=== PATIENT | male | born 1985 | race Asian ===

== ENCOUNTER 2025-03-27 16:17 | Emergency (ER) | payer BC, OTHER, SELFPAY ==
[2025-03-27 16:39] VITALS: BP 142/95; PULSE 94; RESP 18; TEMP 36.6; O2SAT 97; BMI 40.4
--- NOTE | 2025-03-27 16:51 | EDRME_ITS ---
<Statement entered by Hedy Anne MD - 03/27/25 16:54> As co-signing physician, I was present and available for consult prn. I concur with the plan and care as documented by the midlevel provider. Rapid Medical Screening Exam RME Arrival date/time: 03/27/25 16:17 39-year-old male with no known medical history presents to the emergency room with a chief complaint of tenderness to his left calf. Patient states he was running yesterday and felt a pulling sensation and today he is having difficulty walking. I have greeted and performed a focused initial assessment of this patient. A comprehensive ED assessment and evaluation of the patient, analysis of all test results, and completion of the medical decision making process will be conducted by additional ED providers. Chief Complaint: Extremity Injury, Lower Time Seen by Provider: 03/27/25 16:37 Vital signs: Vital Signs Temperature 97.9 F 03/27/25 16:39 Pulse Rate 94 03/27/25 16:39 Respiratory Rate 18 03/27/25 16:39 Blood Pressure 142/95 H 03/27/25 16:39 Pulse Oximetry (%) 97 03/27/25 16:39 Oxygen Delivery Method Room Air 03/27/25 16:39 Vital signs reviewed by provider: Yes Exam: Tenderness swelling and pain to the patient's left calf Patient has clear bilateral lung sounds no respiratory distress no chest pain Clinical Impression: Calf sprain/calf tear
--- NOTE | 2025-03-27 18:21 | XR_ITS ---
EXAMINATION: Ultrasound soft tissue extremity left calf INDICATIONS: Injury to the lower leg with calf pain today Date and time: March 27, 2025, 1826 hours FINDINGS: : Hypoechoic area consistent with hemorrhage 4.6 x 1.9 x 2.5 cm in the left calf IMPRESSION: Hematoma in the soft tissue left calf MRI lower leg without contrast follow-up would best assess for rupture of the plantaris tendon or tear and hemorrhage in the medial head of the gastrocnemius
[2025-03-27] MEDS: HYDROcodone/APAP 5/325 TABLET 1 TAB PO (20:54)
[2025-03-27] MEDS: DEXAMETHASONE SOD PHOS INJ 10 MG/ML VIAL PO (20:54)
[2025-03-27 20:55] LABS: Basophils # (Auto) 0.1 Thou/mm3 (0.0-0.2); Basophils % (Auto) 1 % (0-2.5); Eosinophils # (Auto) 0.3 Thou/mm3 (0.0-0.5); Eosinophils % (Auto) 3 % (0-10); Hematocrit 47.1 % (41.0-53.0); Hemoglobin 15.8 g/dL (13.5-16.0); Immature Granulocytes Auto 0.06 Thou/mm3 (0.00-0.00); Lymphocytes # (Auto) 2.4 Thou/mm3 (1.0-4.8); Lymphocytes % (Auto) 25 % (10-50); Mean Corpuscular HGB Conc 33.5 g/dl (31.0-37.0); Mean Corpuscular Hemoglobin 30.9 pg (25.0-35.0); Mean Corpuscular Volume 92 fL (80-100); Monocytes # (Auto) 0.7 Thou/mm3 (0.0-0.8); Monocytes % (Auto) 7 % (0-12); Neutrophils # (Auto) 5.9 Thou/mm3 (1.8-7.7); Neutrophils % (Auto) 63 % (37-80); Nucleated Red Blood Cell # 0.00 Thou/mm3 (0.00-0.00); Nucleated Red Blood Cell % 0 /100 WBC (0); Platelet Count 217 Thou/mm3 (140-440); RDW Standard Deviation 39.2 fL (35.1-43.9); Red Blood Count 5.12 Miln/mm3 (4.50-5.90); White Blood Count 9.4 Thou/mm3 (3.8-10.6)
[2025-03-27 21:12] LABS: Alanine Aminotransferase 25 U/L (10-49); Albumin, Serum 4.6 gm/dL (3.5-5.0); Albumin/Globulin Ratio 2.1 (1.2-2.2); Alkaline Phosphatase 83 U/L (46-116); Anion Gap 11 (7-16); Aspartate Amino Transferase 17 U/L (0-34); BUN/Creatinine Ratio 13 Ratio (12-20); Bilirubin,Total 0.2 mg/dL (0.3-1.2); Blood Urea Nitrogen 15 mg/dL (9-23); Calcium 9.5 mg/dL (8.3-10.6); Calcium (Corrected) 9.5 mg/dL (8.5-10.1); Carbon Dioxide 25.1 mMol/L (20.0-31.0); Chloride 101 mMol/L (98-107); Creatine Kinase 195 U/L (34-171); Creatinine (Component) 1.2 mg/dL (0.6-1.3); Estimated Creatinine Clearance 106.4 mL/min (>60); Globulin 2.2 gm/dL (2.3-3.5); Glucose 273 mg/dL (74-106); Osmolality,Calculated 284 (275-295); Potassium 4.1 mMol/L (3.4-5.1); Sodium 137 mMol/L (136-145); Total Protein 6.8 gm/dL (5.7-8.2); eGFR > 60 See Note
--- NOTE | 2025-07-04 14:59 | PD.EDLOWEX ---
Lower Extremity Injury RME/HPI General Chief Complaint: Extremity Injury, Lower Stated Complaint: LEFT LOWER LEG PAIN Time Seen by Provider: 03/27/25 16:37 Arrival date/time: 03/27/25 16:17 This is a case of 40-year-old male with no medical history came in in the emergency room due to left lower leg pain after running since last night patient denies any swelling but due to pain has decided to sought consult here in the emergency room Limitations: no limitations RME / HPI RME / HPI Narrative: 03/27/25 16:17 39-year-old male with no known medical history presents to the emergency room with a chief complaint of tenderness to his left calf. Patient states he was running yesterday and felt a pulling sensation and today he is having difficulty walking. I have greeted and performed a focused initial assessment of this patient. A comprehensive ED assessment and evaluation of the patient, analysis of all test results, and completion of the medical decision making process will be conducted by additional ED providers. Exam: Tenderness swelling and pain to the patient's left calf Patient has clear bilateral lung sounds no respiratory distress no chest pain Impression: Calf sprain/calf tear Related Data Previous Rx's ?Medication ?Instructions ?Recorded hydrocodone 5 mg-acetaminophen 325 1 tab PO Q6H PRN pain #12 tabs 03/27/25 mg tablet Allergies Allergy/AdvReac Type Severity Reaction Status Date / Time No Known Allergies Allergy Mild Uncoded 01/22/08 22:31 Review of Systems Review of Systems Systems Reviewed: All systems reviewed, normal except as documented Past Medical History Social History SMOKING STATUS: Current some day smoker ED Exam General Limitations: Present no limitations General appearance: Present alert, in no apparent distress and other (Patient is awake alert oriented not in distress nontoxic looking well-hydrated well-nourished) Head Head exam: Present atraumatic, normocephalic and normal inspection Eye Eye exam: Present normal appearance, PERRL and EOMI ENT ENT exam: Present normal exam, normal oropharynx and mucous membranes moist Neck Neck exam: Present normal inspection, full ROM and trachea midline Chest Chest inspection: Present normal inspection and symmetric chest wall rise Respiratory Respiratory exam: Present normal lung sounds bilaterally; Absent respiratory distress, wheezes, stridor, accessory muscle use or prolonged expiratory phase Cardiovascular Cardiovascular exam: Present regular rate, normal rhythm and normal heart sounds; Absent bradycardia, tachycardia, irregular rhythm, systolic murmur or diastolic murmur Abdominal Exam Abdominal exam: Present soft and normal bowel sounds Extremities Exam Extremities exam: Present normal inspection and full ROM Expanded Lower Extremity Exam Hip/Pelvis exam: Present normal inspection and full ROM; Absent tenderness or swelling Upper leg exam: Present normal inspection and full ROM; Absent tenderness or swelling Knee exam: Present normal inspection and full ROM; Absent tenderness or swelling Lower leg exam: Present tenderness, swelling, Achilles tendon intact and other (Mild to moderate tenderness on the left lower leg but no crepitation no deformed negative Ellis's sign ROM is limited due to pain pulses were full and equal capillary refill less than 2 seconds sensory intact no claudication); Absent abrasion, laceration, ecchymosis, deformity, crepitus, dislocation, erythema, palpable cord or Homans' sign Ankle exam: Present normal inspection and full ROM; Absent tenderness or swelling Foot/toe exam: Present normal inspection and full ROM; Absent tenderness or swelling Back Exam Back exam: Present normal inspection and full ROM Neurological Exam Neurological exam: Present alert, oriented X3, CN II-XII intact, reflexes normal and other (Unable to assess her gait due to pain on the left lowerleg); Absent motor sensory deficit Psychiatric Psychiatric exam: Present normal affect and normal mood Skin Skin exam: Present warm, dry, intact and normal color Course Quality Measures none Orders Category Date Time Status US extremity nonvascular LMTD Stat Exams 03/27/25 18:21 Completed CBC Stat Lab 03/27/25 20:35 Completed CMP [Comprehensive Metabolic Panel] Stat Lab 03/27/25 20:35 Completed Creatine Kinase Stat Lab 03/27/25 20:35 Completed HYDROcodone*/APAP 5/325 [Elmer 5/325] Med 03/27/25 20:16 Discontinued 1 tab PO X1 ONE dexAMETHasone INJ [Decadron Inj] Med 03/27/25 20:16 Discontinued 10 mg PO X1 ONE Vital Signs Vital signs: Vital Signs Temperature 97.9 F 03/27/25 16:39 Pulse Rate 94 03/27/25 16:39 Respiratory Rate 18 03/27/25 16:39 Blood Pressure 142/95 H 03/27/25 16:39 Pulse Oximetry (%) 97 03/27/25 16:39 Oxygen Delivery Method Room Air 03/27/25 16:39 Oxygen saturation is 97% in room air Extremity Injury, Lower MDM Narrative MDM Narrative:: Patient was discharged with comfortable condition walking with stable gait. Patient verbalized no further complains explained diagnosis and answered patient question. Patient is comfortable with the proposed management plan including the need to follow up with his/her primary care physician and any specialist if applicable Discussed patient for any urgent condition or worsening sx, He/She needed to go to emergency room immediately or call 911. Patient acknowledge the responsibility to follow up as instructed and to monitor her/his symptoms. For any persistence of the symptoms for more than 3-5 days return precaution advised. Discussed the result of the test and was given printed discharge instruction Patient data External records reviewed:: [facility] previous records Clinical information provided by:: none Social determinants that could affect healthcare access:: none Patient has the following chronic illnesses:: None How is presenting disease/condition affected by chronic disease/condition?: no chronic disease Evaluation data The following diagnostics were reviewed and interpreted by me:: lab results and radiology exam(s) Lab and/or radiology exams considered but not ordered:: Reviewed Interpretation Summary: Good reviewed Medications / Prescriptions Medications or Prescriptions considered but not ordered:: Given Medication administrations:: Medication Administration History Discontinued Medications Hydrocodone Bitart/Acetaminophen (Hydrocodone/Apap 5/325 Tablet) 1 tab PO X1 ONE Stop: 03/27/25 20:17 Last Admin: 03/27/25 20:54 Dose: 1 tab Documented By: MADDY Dexamethasone Sodium Phosphate (Dexamethasone Sod Phos Inj 10 Mg/Ml Vial) 10 mg PO X1 ONE Stop: 03/27/25 20:17 Last Admin: 03/27/25 20:54 Dose: 10 mg Documented By: MADDY Comments: given po Given Consultations Consultation(s) initiated? (list below): No Diagnosis Extremity Injury, Lower Differential Diagnosis: other (Left leg pain) Most likely diagnosis given after review of the tests above:: Left leg pain hematoma possible rupture of the plantar fascitis Admission Indicated Admission indicated?: not indicated Explain why admission is indicated or not indicated:: not indiacted Admission Request Was there a request for admission?: No Disposition Plan Disposition Plan: Discharge Discharge Attestation Discharge Attestation: The patient and all family members were given an opportunity to ask questions and understood the discharge instructions. Discharge instructions specifically effects, indications for sooner follow up or return to the emergency department, and the expected course of current diagnosis. Patient condition: Stable Discharge Plan Plan Patient Disposition: HOME (Self Care) Patient condition on transfer: Stable Prescriptions/Referrals Prescriptions/Med Rec: New hydrocodone-acetaminophen 5-325 mg tablet 1 tab PO Q6H MDD max 4 tabs per day PRN (Reason: pain) Qty: 12 0RF Referrals: Kiel Carrizales MD [Primary Care Provider, [facility]] - In 1 week Problem List Clinical Impression: Acute leg pain, Hematoma of leg, Rupture of plantaris tendon, Hyperglycemia Patient/Caregiver Discharge Instructions Education Materials: High Blood Sugar (Hyperglycemia), ED Hematoma, ED RICE Additional Instructions: Follow-up with primary care physician in 2 days for reevaluation and to be referred to orthopedic surgeon for further evaluation and treatment of hematoma on the left gastrocnemius to rule out tear of the plantaris tendon patient need MRI to rule out the plantar tendon tear worsening symptoms or any emergent concerns such as swelling numbness weakness tingling sensation call 911 or go to the nearest emergency room ice pack every 2 hours for 20 minutes for 24 hours then alternate with warm compress elevate to decrease swelling keep the Jorge bandage and use of crutches for ambulation is advised take Tylenol Motrin as needed for mild to moderate pain and Elmer for severe pain it is very important to monitor your blood sugar and if your blood sugar greater than 250 or less than 80 or become symptomatic return to the emergency room immediately or call 911 follow-up with your primary care physician to be referred to commissions coordinator for uncontrolled blood sugar continue to take your medication for diabetes Print Language: Croatian Stand Alone Forms: Eneida Award Info., Work/School Release, Patient Portal Info Letter PA/SHAWNA Supervising Physician PA/SHAWNA Supervising Physician: Dr. Rabago
== END 2025-03-27 22:08 | disposition home or self-care (01) ==
PROVIDERS: Nurse Practitioner Family; Emergency Provider Emergency Medicine; PCP Family Medicine
DX: S86.812A Strain of other muscle(s) and tendon(s) at lower leg level, left leg, initial encounter (principal); E11.65 Type 2 diabetes mellitus with hyperglycemia; X50.9XXA Other and unspecified overexertion or strenuous movements or postures, initial encounter; Y93.02 Activity, running
CPT/HCPCS: 36415; 76882; 80053; 82550; 85025; 99283; J1100; A9270

== ENCOUNTER → 2025-04-25 | Outpatient (CLI) | payer BC, SELFPAY ==
--- NOTE | 2025-04-25 11:30 | XR_ITS ---
EXAMINATION: Ultrasound soft tissue extremity left calf TECHNIQUE: Grayscale sonographic images soft tissue left calf Date and time: April 25, 2025, 1206 hours INDICATIONS: Left calf pain 1 month. FINDINGS: Soft tissue mass consistent with hematoma in the left calf 3.1 x 8.7 x 2.4 cm IMPRESSION: Soft tissue hematoma left calf as above
== END | disposition home or self-care (01) ==
LOC: CDIM 11:56
PROVIDERS: PCP Family Medicine; Referring Provider Family Medicine; Visit Provider Family Medicine
DX: S80.12XD Contusion of left lower leg, subsequent encounter (principal); X58.XXXD Exposure to other specified factors, subsequent encounter
CPT/HCPCS: 76882

== ENCOUNTER → 2025-04-29 | Outpatient (CLI) | payer BC, SELFPAY ==
--- NOTE | 2025-04-30 13:45 | XR_ITS ---
Examination: MRI left lower leg without contrast Date and time of exam: April 30, 2025, 1418 hours INDICATIONS: Running injury 1 month ago, unable to bear weight on the leg Technique: Multiple MRI axial and sagittal sections lumbar spine. Sagittal T2-weighted images, TR 3500, TE 118 T1 weighted transverse sections, TR 688 T8.5, T2-weighted sagittal sections T1 weighted sagittal sections TR 621, TE 30 T2 axial sections, TR 4, 190, TE 84. Findings: Left leg medial venous varicosities Retraction of the plantaris tendon, axial image 24, hemorrhage between the soleus and medial head of the gastrocnemius Hemorrhagic contusion of the medial head of the gastrocnemius Tibia fibula intact, no cortical bone destruction no endosteal scalloping IMPRESSION: Plantaris tendon rupture Hemorrhage between the medial head of the gastrocnemius and the soleus Hemorrhagic contusion of the medial head of the gastrocnemius
== END | disposition home or self-care (01) ==
LOC: SMRI 14:05
PROVIDERS: PCP Family Medicine; Referring Provider Family Medicine; Visit Provider Family Medicine
DX: S86.912A Strain of unspecified muscle(s) and tendon(s) at lower leg level, left leg, initial encounter (principal); X58.XXXA Exposure to other specified factors, initial encounter; K92.2 Gastrointestinal hemorrhage, unspecified
CPT/HCPCS: 73718